=== PATIENT | female | born 1975 ===

== ENCOUNTER 2023-05-25 07:42 | Inpatient (IN) | payer OTHER ==
[~2023-05-25] VITALS: Ht 160 cm; Wt 69.4 kg
[2023-05-26] MEDS ORDERED: PROTONIX40 MG PO (11:06)
[2023-05-26] MEDS ORDERED: AMBIEN5 MG PO (11:07)
[2023-05-26] MEDS ORDERED: VISTARIL50 MG/ML IM (11:08)
[2023-05-26] MEDS ORDERED: REMERON15 M1 PO (11:08)
[2023-05-30 15:40] LABS: HEMATOCRIT 39.7 % (36.0-45.00); HEMOGLOBIN 13.3 g/dL (12.0-15.00); MEAN CORPUSCULAR HEMOGLOBIN 27.8 pg (27.00-32.0); MEAN CORPUSCULAR HGB CONC 33.5 g/dl (32.0-36.0); PLATELET COUNT 286 K/uL (150-450); RED BLOOD COUNT 4.79 M/uL (4.00-6.00); RED CELL DISTRIBUTION WIDTH 14.4 % (11.5-14.5)
[2023-05-31 09:41] LABS: HEMATOCRIT 44.9 % (36.0-45.00); MEAN CELL VOLUME 83.5 fL (80.00-100.00); MEAN CORPUSCULAR HEMOGLOBIN 27.9 pg (27.00-32.0); MEAN CORPUSCULAR HGB CONC 33.3 g/dl (32.0-36.0); PLATELET COUNT 269 K/uL (150-450); RED BLOOD COUNT 5.37 M/uL (4.00-6.00); RED CELL DISTRIBUTION WIDTH 14.4 % (11.5-14.5)
[2023-05-31 10:30] LABS: ALBUMIN 3.3 gm/dL (3.4-5.0); CALCIUM 8.7 mg/dL (8.5-10.1); CREATININE SERUM 0.68 mg/dL (0.55-1.02); GFR 91.96; POTASSIUM 4.83 mEq/L (3.5-5.1)
[2023-05-31 11:10] LABS: ABG PH 7.458 (7.35-7.45); ABG PO2 77.7 mmHg (80-100); ABG pCO2 34.7 mmHg (35-45); BASE EXCESS 0.7 mmol/l; SaO2 96.1 %
[2023-06-01 06:45] LABS: HEMATOCRIT 39.6 % (36.0-45.00); HEMOGLOBIN 13.1 g/dL (12.0-15.00); MEAN CELL VOLUME 83.8 fL (80.00-100.00); MEAN CORPUSCULAR HEMOGLOBIN 27.8 pg (27.00-32.0); MEAN CORPUSCULAR HGB CONC 33.1 g/dl (32.0-36.0); PLATELET COUNT 265 K/uL (150-450); RED BLOOD COUNT 4.73 M/uL (4.00-6.00)
[2023-06-01 07:33] LABS: CALCIUM 8.3 mg/dL (8.5-10.1); CREATININE SERUM 0.86 mg/dL (0.55-1.02); GFR 70.13; POTASSIUM 3.7 mEq/L (3.5-5.1)
[2023-06-02] MEDS ORDERED: CIPRO500 MG PO (07:50)
[2023-06-02] MEDS ORDERED: LEVSIN/SL0.125 MG SL (07:50)
[2023-06-02] MEDS ORDERED: METRONIDAZOLE500 MG PO (07:50)
[2023-06-02] MEDS ORDERED: INTESTINEX680 M1 PO (07:51)
[2023-06-02] MEDS ORDERED: TRAM1TAB98 PO (07:51)
== END 2023-06-02 13:05 | disposition home or self-care (01) | DRG 330 ==
LOC: O/R 05-30 08:05 → SURG 05-30 08:45
PROVIDERS: Internal Medicine Geriatric Medicine; ADMIT Surgery; ATTEND Surgery
PROC: 0DTN4ZZ Resection of Sigmoid Colon, Percutaneous Endoscopic Approach (ICD-10-PCS; principal; 2023-05-31)
PROC: 0DBP4ZZ Excision of Rectum, Percutaneous Endoscopic Approach (ICD-10-PCS; 2023-05-31)
PROC: 8E0Y4CZ Robotic Assisted Procedure of Lower Extremity, Percutaneous Endoscopic Approach (ICD-10-PCS; 2023-05-31)
DX: K57.32 Diverticulitis of large intestine without perforation or abscess without bleeding (principal); K56.50 Intestinal adhesions [bands], unspecified as to partial versus complete obstruction; K92.1 Melena
CPT/HCPCS: 44207; 44213; S2900